=== PATIENT | female | born 1975 | race Native Hawaiian/Other Pacific Islander ===

== ENCOUNTER 2020-07-12 09:44 | Outpatient (NON) | payer OTHER, SELFPAY ==
[2020-07-12 19:00] LABS: SARS-CoV-2 RNA PCR Negative
== END 2020-07-12 09:45 ==
PROVIDERS: PCP Family Medicine; Visit Provider Family Medicine
DX: Z20.828 Contact with and (suspected) exposure to other viral communicable diseases (principal); J02.9 Acute pharyngitis, unspecified
CPT/HCPCS: 87635; C9803; U0003

== ENCOUNTER 2024-08-19 15:25 | Outpatient (CLI) | payer OTHER, SELFPAY ==
--- NOTE | ~2024-08-19 | US_ITS ---
EXAMINATION: US thyroid DATE: 08/19/2024 15:41 INDICATION: Nontoxic goiter, unspecified. TECHNIQUE: Multiple ultrasound images of the thyroid were obtained. COMPARISON: None. FINDINGS: The right thyroid lobe measures 5.6 x 1.9 x 1.6 cm. The left thyroid lobe measures 5.4 x 1.7 x 1.6 c m. In the right thyroid lobe, there is a 3 mm nodule. In the right thyroid lobe, there is a 6 mm sivakumar id, hypoechoic, wider than tall nodule with smooth margin without echogenic foci (TI-RADS TR4). In th e right thyroid lobe, there is a 4 mm nodule. In the left thyroid lobe, there is a 4 mm nodule. In th e left thyroid lobe, there is a 9 mm solid, hypoechoic, wider than tall nodule with smooth margin and peripheral calcifications (TR4). In the left thyroid lobe, there is a 7 mm solid, hypoechoic, wider than tall nodule with smooth margin without echogenic foci (TR4). IMPRESSION: 1. Small thyroid nodules, likely not clinically significant. No follow-up is needed. Reviewed, dictated and finalized at location A. LASTIC APTITUDE TEST GRADER IMPRESSION: 1. Small thyroid nodules, likely not clinically significant. No follow-up is ne eded.
== END 2024-08-19 15:26 | disposition home or self-care (01) ==
LOC: MICIMG 15:25
PROVIDERS: PCP Family Medicine; Visit Provider Nurse Practitioner Family
DX: E04.2 Nontoxic multinodular goiter (principal)
CPT/HCPCS: 76536

== ENCOUNTER 2025-05-25 14:51 | Outpatient (CLI) | payer OTHER, SELFPAY ==
--- OUTSIDE RECORDS SUMMARY | 2007-04-08 19:00 | XMS_ITS | Continuity of Care Document ---
Author Organization [email or web address] Address [address] [place] [address] Phone Care Team Providers Care Social Science Teacher Name Role Phone Christina Barajas MD Unavailable [...] Unknown Lym # 00:00:00 2.1 K/uL Unknown Morrow % 00:00:00 4.8 % Unknown Morrow # 00:00:00 0.4 K/uL Unknown Eos % [...] Diagnoses Date Provider Providers Copied on Encounter [email or web address] [facility], [address], [place], [place], [id number], tel:[phone] [place] DIARRHEAMALAISE AND FATIGUE NECABDMNAL PAIN [facility] SITEROUTINE MEDICAL EXAMSCREEN MAL NEOP-RECTUMNAUSEA ALONE [address] [place], [place], [id number]. tel:[phone] Family History Family Member Type Diagnosis Age At Onset No Information Payers Payer name Insurance type Covered republican ID Authoriza tion(s) No Information Social History [...]
--- NOTE | ~2025-05-25 | MM_ITS ---
EXAMINATION: MM screening [facility] BI w tran INDICATION: Asymptomatic, referred for screening mammogram COMPARISON: None available TECHNIQUE: Digital Breast Tomosynthesis CC, MLO views of Both breasts were obtained with computer-aided detection to assist in interpretation of the study. FINDINGS: The breasts are heterogeneously dense, which may obscure small masses. There is a mass with partially obscured margins in the superior lateral right breast at anterior third. Elsewhere, there are no mammographic features of malignancy. IMPRESSION: 1. Right breast Mass. 2. No evidence of malignancy in the Left breast. RECOMMENDATION: Right breast ultrasound BI-RADS Category 0: Incomplete: Needs additional imaging evaluation. Reviewed, dictated and finalized at location B.
--- OUTSIDE RECORDS SUMMARY | 2025-05-25 14:57 | XMS_ITS | Clinical Summary ---
Author Organization [facility] Address [address] [place] [address] Care Team Providers Care Transcriptionist Name Role Phone Unavailable Primary Care Provider Unavailabl e Source Comments [facility],non-owned Affiliates and Associated Physician Practices is amultiple site organization consisting of ambulatory clinics and hospital sitesin [place], [place] and [place]. This disclosure is being madepursuant to the Care Everywhere program and may not contain all information available regarding this patient. Last updated 18.[facility] Allergies No known active allergies Medications * Be aware that medications may not be up to date on this document. Alwaysverify current medications with the patient. No known medications Social History Tobacco Use Types Packs/Day Years Used Date Smoking Tobacco: Never Smokeless Tobacco: Never Comments No Sex and Gender Information Value Date Recorded Sex Assigned at Not on file Legal Sex Female 9:23 AM CITY SUPERVISOR Gender Identity Not on file Sexual Orientation Not on file Last Filed Vital Signs Vital Sign Reading Time Taken Comments Blood Pressure 110/64 10/10/2018 2:53 PM CITY SUPERVISOR Pulse 82 10/10/2018 2:53 PM CITY SUPERVISOR Temperature 36.8 C (98.2 F) 10/10/2018 2:53 PM CITY SUPERVISOR Respiratory Rate 16 10/10/2018 2:53 PM CITY SUPERVISOR Oxygen Saturation 99% 10/10/2018 2:53 PM CITY SUPERVISOR Inhaled Oxygen Concentration - - Weight 54.4 kg (120 lb) 10/10/2018 2:53 PM CITY SUPERVISOR Height 157.5 cm (5' 2) 10/10/2018 2:53 PM CITY SUPERVISOR Body Mass Index 21.95 10/10/2018 2:53 PM CITY SUPERVISOR Plan of Treatment Health Maintenance Due Date Last Done Comments COLOGUARD (AGES 45-75) - COL ON CA SCREENING 1977 COLON MONITORING 1977 COLONOSCOPY - COLON CA SCREENING 1977 CT COLONOGRAPHY - COLON CA SCREENING 1977 Colorectal Cancer Screening 1977 FIT - COLON CA SCREENING 1977 FLEX SIG - COLON CA SCREENING 1977 LIPID TESTING 1975 MAMMOGRAM 1977 HIV SCREENING 1992 HEPATITIS C SCREENING 09/11/1995 DTAP/TDAP/TD VACCINES (1 - Tdap) 1996 HEPATITIS B VACCINE (1 of 3 - 19+ 3-dose series) 1996 COVID-19 VACCINE (1 - 2023-2 5 season) 2024 DEPRESSION SCREENING 09/30/2024 INFLUENZA VACCINE (#1) 2025 ZOSTER VACCINE (1 of 2) 2027 HIB VACCINE Aged Out No longer eligi ble based on patient's age to complete this topic HPV VACCINE Aged Out No longer eligi ble based on patient's age to complete this topic MENINGOCOCCAL (Group B) VACC INE SHARED DECISION-MAKING Aged Out No longer eligibl e based on patient's age to complete this topic MENINGOCOCCAL GROUPS A/C/Y/W VACCINE Aged Out No longer eligible b ased on patient's age to complete this topic PNEUMOCOCCAL VACCINE Aged Out No long er eligible based on patient's age to complete this topic
== END 2025-05-25 14:52 | disposition home or self-care (01) ==
LOC: CHSIMG 14:53
PROVIDERS: PCP Family Medicine; Visit Provider Obstetrics & Gynecology
DX: Z12.31 Encounter for screening mammogram for malignant neoplasm of breast (principal)
CPT/HCPCS: 77063; 77067

== ENCOUNTER 2025-06-02 10:49 | Outpatient (CLI) | payer OTHER, SELFPAY ==
--- NOTE | ~2025-06-02 | US_ITS ---
Clinical history:Indeterminate mammogram. Right breast mass. EXAM:Ultrasound breast right limited TECHNIQUE:Multiple static grayscale images and color Doppler images were obtained of the upper outer quadrant of the right breast from the 9 to 11:00 position. Comparisons:Mammogram 05/25/2025, 01/02/2024; breast ultrasound 02/03/2024 FINDINGS: There is a 5 x 9 x 4 mm benign cyst in the right breast 1:00 position 7 cm from the nipple. There is a 4 x 5 x 2 mm benign cyst in the right breast 1:00 position 7 cm from nipple. There is a 10 x 9 x 7 mm hypoechoic mass in the right breast at the 10:00 position 3 cm from nipple. The finding may correspond with the mammographic mass seen in the mammogram from 05/25/2025. No internal color Doppler flow. The finding is wider than tall. No posterior acoustic shadowing. The finding is suspicious. There is a 1.8 x 1.7 x 1.1 cm benign cyst in the right breast in the 10:00 position 3 cm from the nipple. There is a 4 x 4 x 3 mm benign cyst in the right breast 11:00 position 3 cm from the nipple. IMPRESSION: 1. There is a 10 mm mass in the right breast at the 10:00 position. The finding may correspond with the mammographic mass seen in the mammogram from 05/25/2025. The finding is suspicious. An ultrasound-guided biopsy is recommended. BI-RADS 4-Suspicious Protocol insures that results of the study are called and/or faxed to the referring clinician's office and documented in the patient's chart critical findings protocol. Reviewed, dictated and finalized at location Q. IMPRESSION: 1. There is a 10 mm mass in the right breast at the 10:00 position. The finding may correspond with the mammographic mass seen in the mammogram from 05/25/2025 . The finding is suspicious. An ultrasound-guided biopsy is recommended. BI-RADS 4-Suspicious Protocol insures that results of the study are called and/or faxed to the refer ring clinician's office and documented in the patient's chart critical findings protocol.
== END 2025-06-02 10:50 | disposition home or self-care (01) ==
LOC: CHSIMG 10:50
PROVIDERS: PCP Family Medicine; Visit Provider Obstetrics & Gynecology
DX: N63.10 Unspecified lump in the right breast, unspecified quadrant (principal); R92.8 Other abnormal and inconclusive findings on diagnostic imaging of breast
CPT/HCPCS: 76642

== ENCOUNTER 2025-06-23 07:59 | Outpatient (CLI) | payer OTHER, SELFPAY ==
--- OUTSIDE RECORDS SUMMARY | 2007-04-08 19:00 | XMS_ITS | Continuity of Care Document ---
Author Organization [employer] - is now [facility] Address [address] [place] [address] Phone Care Team Providers Care Soils Analyst Name Role Phone Christina Barajas MD Unavailable Unavailabl e Results Test Name Date and Time Measure Units Reference Range Abnormal Flag Status Comments Panel Description: CBC w/diff Unknown WBC 00:00:00 7.4 K/uL Unknown RBC 00:00:00 4.66 M/uL Unknown HGB 00:00:00 13.5 g/dL Unknown HCT 00:00:00 42.3 % Unknown MCV 00:00:00 90.7 fL Unknown MCH 00:00:00 28.9 pg Unknown MCHC 00:00:00 31.9 g/dL L Unknown RDW 00:00:00 12.0 % Unknown PLT 00:00:00 218 K/uL Unknown MPV 00:00:00 9.6 fL Unknown Neut % 00:00:00 62.9 % Unknown Neut # 00:00:00 4.6 K/uL Unknown Lym % 00:00:00 29.0 % Unknown Lym # 00:00:00 2.1 K/uL Unknown [place] % 00:00:00 4.8 % Unknown [place] # 00:00:00 0.4 K/uL Unknown Eos % 00:00:00 2.1 % Unknown Eos # 00:00:00 0.2 K/uL Unknown Baso % 00:00:00 1.2 % Unknown Baso # 00:00:00 0.1 K/uL Unknown Panel Description: TSH Unknown TSH 00:00:00 0.61 uIU/ml Unknown Panel Description: STOOL CARDS - DIAGNOSTIC Unk nown OCCULT1 00:00:00 NEG Unknown Panel Description: Free T4 Unknown FT4 00:00:00 1.01 ng/dL Unknown Advance Directives Directive Yes / No Effective Date File Name No Information Encounters Encounter Description Practice Location Reason(s) For Visit Diagnoses Date Provider Providers Copied on Encounter [facility], [address], [place], [place], [id number], tel:[phone] [place] DIARRHEAMALAISE AND FATIGUE NECABDMNAL PAIN [facility] SITEROUTINE MEDICAL EXAMSCREEN MAL NEOP-RECTUMNAUSEA ALONE [address] [place], [place], [id number]. tel:[phone] Family History Family Member Type Diagnosis Age At Onset No Information Payers Payer name Insurance type Covered alliance party ID Authoriza tion(s) No Information Social History Type Description Quantity Date Captured Comments Sex Female Smoking Status No Information Vital Signs Date / Time: Height Weight BMI Pulse Rate Blood Pressure Temperature Respiratory Rate Body Surface Area Head Circumference Head Circ. Percentile Wt./Elliott. Percentile BMI percentile Pulse Ox Inhaled Ox 2:06 PM 61.00 in 131.00 lbs 24.7 5 kg/m eter (2) 72 /min 112/70 mm[Hg] Chief Complaint And Reason For Visit No Information Reason For Referral Reason For Referral No Information History Of Present Illness Encounter Date Complaint History Of Prese nt Illness No Information Functional Status Date Functional Assessmen t No Information Instructions Date Instruction Additional Infor mation No Information Assessments Type Assessment Date No Information Patient Care Teams Name Effective Dates (start - stop) Status Members No Information
--- NOTE | ~2025-06-23 | MMUS_ITS ---
PROCEDURE: US breast biopsy RT w image, MM post biopsy diagnostic RT CLINICAL HISTORY: 49-year-old female with suspicious right breast mass at 10:00 position presents for ultrasound-guided core needle biopsy procedure. COMPARISON: 06/02/2025 Following informed consent including risks, benefits, and possible complications, the patient was brought to the ultrasound suite. A time-out procedure was performed. A preliminary ultrasound of the right breast was performed, redemonstrating hypoechoic mass with circumscribed margins at 10:00, 3 cm from the nipple. The patient was prepped and draped in the usual sterile fashion. 1% lidocaine was instilled into the subcutaneous tissues. 1% lidocaine without epinephrine was injected into the deep tissues just inferior to the lesion. Approximately 15cc lidocaine was administered. A small skin patricia was made. Multiple core samples were obtained with a 14-gauge multi pass biopsy needle. A post biopsy butterfly Delta Gregory marker was placed at the biopsy site. Postprocedural mammogram of the right breast in craniocaudal and mediolateral projections reveal the post biopsy butterfly Delta Gregory marker in good position. The patient tolerated the procedure well and was without immediate postprocedural complications. IMPRESSION: Successful ultrasound guided biopsy of right breast mass. A post biopsy butterfly Delta Gregory marker was placed at the biopsy site, which is seen on postprocedural mammogram. The patient tolerated the procedure well without immediate postprocedure complications. The patient was given postprocedural instructions and sent home in stable condition. Biopsy pathology report pending. Reviewed, dictated and finalized at location B. IMPRESSION: Successful ultrasound guided biopsy of right breast mass. A post bi opsy butterfly Delta Gregory marker was placed at the biopsy site, which is seen o n postprocedural mammogram. The patient tolerated the procedure well without immediate postprocedure compli cations. The patient was given postprocedural instructions and sent home in sta ble condition. Biopsy pathology report pending.
--- OUTSIDE RECORDS SUMMARY | 2025-06-23 08:11 | XMS_ITS | Clinical Summary ---
Author Organization [facility] [employer] Address [address] [place] [address] Care Team Providers Care Pullman Car Repairer Name Role Phone Unavailable Primary Care Provider Unavailabl e Source Comments [facility] [employer]non-owned Affiliates and Associated Physician Practices is amultiple site organization consisting of ambulatory clinics and hospital sitesin [place], [place], [place] and [place]. This disclosure is being madepursuant to the Care Everywhere program and may not contain all information available regarding this patient. Last updated 18.[facility] [employer] Allergies No known active allergies Medications * [...] on file Legal Sex Female 9:23 AM RECONCILER Gender Identity Not on file Sexual Orientation Not on file Last Filed Vital Signs Vital Sign Reading Time Taken Comments Blood Pressure 110/64 10/10/2018 2:53 PM RECONCILER Pulse 82 10/10/2018 2:53 PM RECONCILER Temperature 36.8 C (98.2 F) 10/10/2018 2:53 PM RECONCILER Respiratory Rate 16 10/10/2018 2:53 PM RECONCILER Oxygen Saturation 99% 10/10/2018 2:53 PM RECONCILER Inhaled Oxygen Concentration - - Weight 54.4 kg (120 lb) 10/10/2018 2:53 PM RECONCILER Height 157.5 cm (5' 2) 10/10/2018 2:53 PM RECONCILER Body Mass Index 21.95 10/10/2018 2:53 PM RECONCILER Plan of Treatment Health Maintenance Due Date [...] of 3 - 19+ 3-dose series) 1996 DEPRESSION SCREENING 09/30/2024 COVID-19 VACCINE (1 - 2023-2 5 season) 2025 INFLUENZA VACCINE (#1) 2025 ZOSTER VACCINE (1 [...]
--- NOTE | 2025-06-23 09:40 | S_PTH ---
PATIENT: Laura Crawford LOC: [facility] U#:[id number] AGE/SX: 49/F ROOM: RE06/23/[address]: Nenita Styles MD : 1975 BED: DIS: 06/23/2025 SPEC #: [id number] RECD: 06/23/25 09:59 STATUS: ALEK REQ #: [id number] VICENTA: 06/23/25 09:[address]: Nenita Styles DEPT: [facility] Surgical RECD BY: Mere Kinney ENTERED: 06/23/25 09:59 SP TYPE: Surgical OTHR DR: Cuauhtemoc Booker MD Tissues: A - Breast Biopsy Procedures: Hematoxylin and Eosin Stain Gross and Microscopic Level 4
== END 2025-06-23 08:00 | disposition home or self-care (01) ==
LOC: ANHFOHIMG 08:00
PROVIDERS: PCP Family Medicine; Visit Provider Surgery
DX: N63.11 Unspecified lump in the right breast, upper outer quadrant (principal); R92.8 Other abnormal and inconclusive findings on diagnostic imaging of breast
CPT/HCPCS: 19083; 77065; 88305; A4648

== ENCOUNTER 2025-09-27 11:27 | Outpatient (CLI) | payer OTHER, SELFPAY ==
--- NOTE | ~2025-09-27 | XR_ITS ---
Examination: XR chest 2V Clinical History: R05.9 - Cough, unspecified Comparison: None Technique: PA and Lateral Findings: Cardiomediastinal silhouette normal size and configuration. Lungs clear. No acute bony abnormality. IMPRESSION: 1. No acute cardiopulmonary findings. Reviewed, dictated and finalized at location R. WORKER FRUIT
--- OUTSIDE RECORDS SUMMARY | 2025-09-27 12:07 | XMS_ITS | Clinical Summary ---
Author Organization [facility] Address [address] [place] [address] Care Team Providers Care Air Defense Artillery Senior Sergeant Name Role Phone Unavailable Primary Care Provider Unavailabl e Source Comments [facility],non-owned Affiliates and Associated Physician Practices is amultiple site organization consisting of ambulatory clinics and hospital sitesin [place], [place], [place] and [place]. This disclosure is being madepursuant to the Care Everywhere program and may not contain all information available regarding this patient. 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 Gender Identity Not on file Sexual Orientation Not on file Last Filed Vital Signs Vital Sign Reading Time Taken Comments Blood Pressure 110/64 10/10/2018 2:53 PM GLUE PLANT OPERATOR Pulse 82 10/10/2018 2:53 PM GLUE PLANT OPERATOR Temperature 36.8 C (98.2 F) 10/10/2018 2:53 PM GLUE PLANT OPERATOR Respiratory Rate 16 10/10/2018 2:53 PM GLUE PLANT OPERATOR Oxygen Saturation 99% 10/10/2018 2:53 PM GLUE PLANT OPERATOR Inhaled Oxygen Concentration - - Weight 54.4 kg (120 lb) 10/10/2018 2:53 PM GLUE PLANT OPERATOR Height 157.5 cm (5' 2) 10/10/2018 2:53 PM GLUE PLANT OPERATOR Body Mass Index 21.95 10/10/2018 2:53 PM GLUE PLANT OPERATOR Plan of Treatment Health Maintenance Due Date [...] of 3 - 19+ 3-dose series) 1996 PAP SMEAR 1998 DEPRESSION SCREENING 09/30/2024 COVID-19 VACCINE (1 - 2024-2 6 season) 2025 INFLUENZA VACCINE (#1) 2025 ZOSTER [...] on patient's age to complete this topic Insurance [facility] SELF PAY NO INSURANCE Member Subscriber Plan / Payer (Ef fective for All Dates) Name:Laura Crawford Member ID:Not on file Relation to Subscriber:Not on file Name:LAURA CRAWFORD Subscriber ID:Not on file (Home) Address: [place] [address] Payer ID:Not on file Group ID:Not on file Type:Self Pay Address: [place], [place]
== END 2025-09-27 11:28 | disposition home or self-care (01) ==
PROVIDERS: PCP Family Medicine; Visit Provider Nurse Practitioner Family
DX: R05.9 Cough, unspecified (principal)
CPT/HCPCS: 71046